=== PATIENT | male | born 1985 | race American Indian/Alaskan Native ===

== ENCOUNTER 2019-02-02 01:05 | Emergency (ER) | payer SELFPAY ==
[2019-02-02 01:27] VITALS: BP 124/80
[2019-02-02] MEDS ORDERED: KETOROLAC 30 MG/1 ML INJ IM ONE (04:22)
[2019-02-02] MEDS ORDERED: ONDANSETRON 4 MG ODT TAB PO ONE (04:22)
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
== END 2019-02-02 05:57 | disposition home or self-care (01) ==
LOC: ED 01:05
DX: J32.9 Chronic sinusitis, unspecified (principal); G43.909 Migraine, unspecified, not intractable, without status migrainosus; Z76.0 Encounter for issue of repeat prescription; Z87.891 Personal history of nicotine dependence; Z79.899 Other long term (current) drug therapy
CPT/HCPCS: 96372; 99282; J1885; Q0162